=== PATIENT | female | born 1990 | race Caucasian/White ===

== ENCOUNTER 2017-07-16 08:21 | Emergency (ER) | payer SELFPAY ==
[~2017-07-16] VITALS: Ht 185.4 cm; Wt 92.4 kg
[2017-07-16] MEDS ORDERED: VIBRAMYCIN100 MG PO (09:42)
[2017-07-16 10:13] VITALS: BP 143/69
== END 2017-07-16 10:19 | disposition home or self-care (01) ==
LOC: EME 08:21
DX: L03.818 Cellulitis of other sites (principal); R00.0 Tachycardia, unspecified; F17.200 Nicotine dependence, unspecified, uncomplicated
CPT/HCPCS: 93005; 99281; 99283